=== PATIENT | male | born 1935 | race Caucasian/White ===

== ENCOUNTER 2016-10-17 08:19 | Inpatient (IN) | payer MEDICARE ==
[~2016-10-17] VITALS: Ht 177.8 cm; Wt 83.5 kg
[2016-10-17] MEDS ORDERED: LISI10TA4 PO (08:28)
[2016-10-17] MEDS ORDERED: ASPI81TA85 PO (08:28)
[2016-10-17] MEDS ORDERED: ACETAMINOPHEN TAB 650MG DOSE (2X325MG) PO ONE (09:00)
[2016-10-17] MEDS ORDERED: NS 1,000 ML IV ONE (09:00)
[2016-10-17 09:21] LABS: MEAN CORPUSCULAR HGB CONC 34.9 g/dl (32.0-36.5); MEAN CORPUSCULAR VOLUME 94.7 fl (80.0-96.0); PLATELET COUNT, AUTOMATED 127 k/mm3 (150-450); RED CELL DISTRIBUTION WIDTH 12.5 % (11.5-14.5)
[2016-10-17 09:28] LABS: INR 1.31
[2016-10-17] MEDS ORDERED: META48.54 PO (09:44)
[2016-10-17] MEDS ORDERED: TUMS500C PO (09:44)
[2016-10-17] MEDS ORDERED: ONDANSETRON 4MG/2ML VIAL (J2405) IV ONE (09:45)
[2016-10-17 09:46] LABS: ALBUMIN 2.6 GM/DL (3.2-5.2); ALBUMIN/GLOBULIN RATIO 0.6 (1.00-1.93); BILIRUBIN,DIRECT 0.3 MG/DL (0.0-0.2); CALCIUM LEVEL 7.9 MG/DL (8.8-10.2); CREATININE FOR GFR 1.67 MG/DL (0.70-1.30); GLOMERULAR FILTRATION RATE 42.1 (>35); POTASSIUM SERUM 3.9 MEQ/L (3.5-5.1); TOTAL PROTEIN 6.9 GM/DL (6.4-8.2)
[2016-10-17 12:44] LABS: REASON FOR REVIEW PLATELET MORPHOLOGY
[2016-10-17] MEDS ORDERED: GI COCKTAIL 50ML BTL(HYOSCYAMINE/MAALOX/LIDOCAINE VISCOUS)(1:3:1) PO ONE (12:45)
[2016-10-17] MEDS ORDERED: ACETAMINOPHEN TAB 650MG DOSE (2X325MG) PO PRN (13:15)
[2016-10-17] MEDS ORDERED: ONDANSETRON 4MG/2ML VIAL (J2405) IV PRN (13:15)
--- NOTE | 2016-10-17 13:40 | HPEPDOC ---
General Date of Admission Oct 17, 2016 at 13:15 Chief Complaint The patient is a 81-year-old male Presented to the ER with complaints of right leg rash, swelling and mild pain. History of Present Illness Patient is 81 year old male with a PMHx of HTN, Arthritis, Hx of SAH 2 /2 Aneurism (s/p coiling 2005), Hx of DVT in R leg (>3 years ago) and Hx of Colon resection (2/2 suspected malignancy) who presented to the ER with complaints of right leg rash. Patient notes that 7 days ago he had pain in his leg and thought nothing of it. Then 3 days ago he began to notice a rash on his thigh and a day after he had developed swelling. He notes that the rash started on the inner side of his right thigh then progressed to his lower limb. He noted that there was mild pain, warmth, and redness. He denied any trauma or bites to the leg. Has not used any new medications. Has not had this happen before in the past. Denied any fever or chills at home. He noted that for the last 2 days he was dizzy and nauseous and had vomited for the last 2 days. Denies abdominal pain, constipation, diarrhea or urinary symptoms. Denies any shortness of breath, cough, chest pain or palpitations. Home Medications Scheduled Aspirin (Aspir-81) 81 Mg Tab, 81 MG PO DAILY, (Reported) Lisinopril (Lisinopril) 10 Mg Tab, 10 MG PO DAILY, (Reported) Psyllium (Metamucil) 48.57 % Pow, 1 PKT PO BID, (Reported) Scheduled PRN Calcium Carbonate (Tums) 500 Mg Chw, 500 MG PO for INDIGESTION, (Reported) Allergies Coded Allergies: No Known Allergies (Unverified , 10/17/16) Past Medical History Medical History HTN, Arthritis, Hx of SAH 2/2 Aneurism (s/p coiling 2005), Hx of DVT in R leg (>3 years ago) and Hx of Colon resection (2/2 suspected malignancy) Surgical History Hx of Colon resection (2/2 suspected malignancy) Family History - Non-contributory Social History - Denies the use of alcohol, tobacco or illicit drugs - Denies recent travel or sick contacts - Lives with - Occupation: [employer] Review of Symptoms Other systems Constitutional: Denies weight loss, change in appetite, or recent trauma Eyes: No visual changes or eye pain Ears, Nose, Throat: Denies nose bleeds, or difficulty swallowing Cardiovascular: Denies chest pain, sweating, or orthopnea Respiratory: Denies cough, wheezing, or shortness of breath GI: Positive nausea and vomiting, No abdominal pain, diarrhea or constipation : Denies pain with urination or frequency Musculoskeletal: Positive right leg swelling, redness, warmth and mild pain Neuro / Psych: Denies muscle weakness or sensory loss Skin: No skin rashes noted All other review of systems negative; otherwise stated in history of present illness Screening: - Colonoscopy done 1-2 years ago reported normal Vital Signs - Vitals: BP 118/59, HR 63, RR 18, Sat 96%RA, Temp 99.7F - General: Lying in bed, No acute distress, Speaking in full sentences, AAOx3 - HEENT: NC, AT, PERRLA, EOMI - CVS: RRR, +S1S2, - Murmurs / rubs / gallops - Lungs: Fair air entry bilaterally, Clear to auscultation, No wheezing / rales / rhonchi - Abdomen: Soft, Non-distended, Non-tender, + Bowel sounds x 4 - Extremities: + PPx4, Right leg with 1+ pitting edema to thigh, red / petechial rash extending from foot to medial thigh, +warmth, possible bug bite at posterior ankle, left leg with no tenderness - Neuro: No focal motor or sensory deficit - Skin: No visible rashes Laboratory Data Labs 24H Laboratory Tests 2 10/17/16 09:08: Neutrophils 96H, Lymphocytes (Manual) 1L, Monocytes (Manual) 1, Atypical Lymphocytes 2, Platelet Estimate DECREASED, Red Blood Cell Morphology NORMAL, Prothrombin Time 16.4H, Prothromb Time International Ratio 1.31, Activated Partial Thromboplast Time 36.5, Fibrinogen 651H, Anion Gap 8, Glomerular Filtration Rate 42.1, Lactic Acid Level 1.9, Calcium Level 7.9L, Aspartate Amino Transf (AST/SGOT) 5L, Alanine Aminotransferase (ALT/SGPT) 18, Alkaline Phosphatase 59, Total Bilirubin 1.0, Direct Bilirubin 0.3H, C-Reactive Protein, Quantitative 15.40H, Total Protein 6.9, Albumin 2.6L, Albumin/Globulin Ratio 0.60L 10/17/16 11:33: Urine Appearance CLOUDYH, Urine Color GHISLAINE, Urine pH 5.0, Urine Specific [place] 1.024, Urine Protein 1+H, Urine Glucose (UA) NEGATIVE, Urine Ketones NEGATIVE, Urine Urobilinogen 0.2, Urine Bilirubin NEGATIVE, Urine Leukocyte Esterase NEGATIVE, Urine Blood 2+H, Urine Nitrite NEGATIVE, Urine WBC (Auto) 2, Urine RBC (Auto) 0, Urine Hyaline Casts (Auto) 0, Urine Bacteria (Auto) NEGATIVE , Urine Squamous Epithelial Cells 1, Urine Mucus (Auto) LARGE, Urine Sperm (Auto ) 10/17/16 12:36: Differential Slide Review Report, Differential Pathologist's Review PLATELET MORPHOLOGY, Peripheral Blood Smear Path Consult PERIPHERAL SMEAR CBC/BMP Laboratory Tests 10/17/16 09:08 Red Blood Count 3.95 L, Mean Corpuscular Volume 94.7, Mean Corpuscular Hemoglobin 33.0, Mean Corpuscular Hemoglobin Concent 34.9, Red Cell Distribution Width 12.5 Microbiology Microbiology 10/17/16 Blood Culture, Received Pending 10/17/16 Blood Culture, Received Pending 10/17/16 Influenza Virus Type A Antigen - Final, Complete 10/17/16 Influenza Virus Type B Antigen - Final, Complete 10/17/16 Group A Streptococcus Screen (CORIE), Received Pending 10/17/16 Urine Culture, Received Pending Plan / VTE VTE Prophylaxis Ordered?: Yes Plan Plan Right leg pain / redness / warmth likely 2/2 cellulitis possibly 2/2 bug bit - Presented with pain that progressed to redness and swelling - Physical reveals red / warm / tender leg, with small area behind ankle with possible insect bite - WBC elevated, CRP elevated - US in ER completed without any evidence of DVT - Will check MRI leg, Will check blood cultures - Will start Ceftaroline (re: MRSA coverage) Elevated Creatinine likely at baseline 2/2 CKD3 - Will c/w gentle IV fluid hydration for now Thrombocytopenia - Etiology unknown - Labs reveal an elevation in INR and low albumin suggesting liver etiology - Will check hepatitis panel, HIV, Peripheral smear - Will get US of abdomen (Liver and Spleen) - Will monitor for now - Will hold ASA HTN - c/w Lisinopril with holding parameters Arthritis Hx of SAH 2/2 Aneurism (s/p coiling 2005) Hx of DVT in R leg (>3 years ago) Hx of Colon resection (2/2 suspected malignancy) GERD - will start protonix DVT prophylaxis - Will start SCDs FLOR JUNE MD Oct 17, 2016 13:40
[2016-10-17] MEDS ORDERED: NS 1,000 ML IV SCH ×2 (14:00→15:00)
[2016-10-17] MEDS ORDERED: CEFTAROLINE FOSAMIL 600 MG in D5W MINI-BAG PLUS 50 ML IV SCH (14:00)
--- NOTE | 2016-10-17 15:08 | REP ---
Chest one-view HISTORY: Sepsis Comparison: None The lungs are clear. The heart is normal in size. The pulmonary vasculature is normal in appearance. Impression: No acute disease. Signed by Palomo Mtz MD 10/17/2016 10:05 A
--- NOTE | 2016-10-17 15:10 | REP ---
UNILATERAL RIGHT LOWER EXTREMITY DUPLEX VEINS: HISTORY: Swelling. There are no filling defects in the deep venous system. The deep venous system is patent. IMPRESSION: There is no deep venous thrombosis. Signed by Palomo Mtz MD 10/17/2016 02:16 P
[2016-10-17 15:25] VITALS: BP 105/60
[2016-10-17] MEDS: CEFTAROLINE FOSAMIL 400 MG in D5W MINI-BAG PLUS 50 ML IV SCH (16:32)
[2016-10-17] MEDS: PANTOPRAZOLE 40MG TAB (PROTONIX) PO SCH (16:32)
[2016-10-17] MEDS: LISINOPRIL 10 MG TAB PO SCH (16:33)
[2016-10-17] MEDS ORDERED: ACETAMINOPHEN 325 MG TAB PO ONE (16:50)
[2016-10-17 18:00] VITALS: BP 110/62
[2016-10-17 21:03] VITALS: BP 120/78
[2016-10-17 22:00] VITALS: BP 120/78
[2016-10-18] MEDS: CEFTAROLINE FOSAMIL 400 MG in D5W MINI-BAG PLUS 50 ML IV SCH ×2 (01:42→14:19)
[2016-10-18 02:00] VITALS: BP 110/60
[2016-10-18 06:00] VITALS: BP 105/61
[2016-10-18 06:34] LABS: BASO % 0.1 % (0.0-1.0); EOS % 0.4 % (0.0-3.0); LARGE UNSTAINED CELL # 0.2 K/mm3 (0.0-0.4); LARGE UNSTAINED CELL % 1.8 % (0.0-4.0); LYMPH # 0.6 K/mm3 (1.5-4.5); LYMPH % 5.9 % (24.0-44.0); MEAN CORPUSCULAR HEMOGLOBIN 34.2 pg (27.0-33.0); MEAN CORPUSCULAR HGB CONC 35.5 g/dl (32.0-36.5); MEAN CORPUSCULAR VOLUME 96.2 fl (80.0-96.0); MONO # 0.4 K/mm3 (0.0-0.8); MONO % 3.8 % (0.0-5.0); NEUTROPHILS # 9.1 K/mm3 (1.8-7.7); NEUTROPHILS % 88.1 % (36.0-66.0); RED CELL DISTRIBUTION WIDTH 12.5 % (11.5-14.5); WHITE BLOOD COUNT 10.4 K/mm3 (4.0-10.0)
[2016-10-18 06:38] LABS: ALBUMIN 2.1 GM/DL (3.2-5.2); ALBUMIN/GLOBULIN RATIO 0.55 (1.00-1.93); BILIRUBIN,TOTAL 0.8 MG/DL (0.2-1.0); CALCIUM LEVEL 7.5 MG/DL (8.8-10.2); CREATININE FOR GFR 1.37 MG/DL (0.70-1.30); TOTAL PROTEIN 5.9 GM/DL (6.4-8.2)
[2016-10-18 07:16] LABS: PLATELET COUNT, AUTOMATED 99 k/mm3 (150-450)
[2016-10-18 07:34] LABS: CONTROL LINE HPYORI INT CTR LINE PRESENT
[2016-10-18] MEDS: LISINOPRIL 10 MG TAB PO SCH (08:48)
[2016-10-18] MEDS: PANTOPRAZOLE 40MG TAB (PROTONIX) PO SCH (08:52)
[2016-10-18 10:00] VITALS: BP 108/65
[2016-10-18] MEDS ORDERED: METAMUCIL (PSYLLIUM) PACKET PO PRN (10:15)
--- NOTE | 2016-10-18 10:24 | IPNPDOC ---
Subjective Date Seen The patient was seen on 10/18/16. Subjective Chief Complaint/HPI The patient is a 81-year-old male admitted with a reason for visit of Fever,Rt Leg Pain. General: Denies: Chills, Night Sweats Constitutional: Denies: Chills, Fever Eyes: Denies: Pain ENT: Denies: Head Aches, Ear Pain Skin: Reports: Rash, Other (RLE Cellulitis) Pulmonary: Denies: Dyspnea, Cough Cardiovascular: Denies: Chest Pain, Palpitations Gastrointestinal: Denies: Nausea, Vomiting Genitourinary: Denies: Dysuria, Frequency Hematologic: Denies: Bruising, Bleeding Excessively Musculoskeletal: Denies: Neck Pain, Back Pain Objective Physical Examination General Exam: Positive: Alert, Cooperative, No Acute Distress ENT Exam: Positive: Atraumatic, Mucous membr. moist/pink Neck Exam: Negative: JVD Chest Exam: Positive: Clear to auscultation, Normal air movement Heart Exam: Positive: Rate Normal, Normal S1, Normal S2 Abdomen Exam: Positive: Soft, Negative: Tenderness Extremity Exam: Positive: Other (Right lower extremity notable for erythema, petechial rash extending from foot distally to medial thigh proximally. Nontender to palpation, no warmth on palpation. No open lesions or drainage/ noted. 1+ pitting edema lower aspect of the extremity. Left lower extremity with no acute findings.) Psych Exam: Positive: Oriented x 3 Assessment /Plan Plan/VTE VTE Prophylaxis Ordered?: Yes Plan Right lower extremity cellulitis Ultrasound of lower extremity with no evidence of DVT White blood cell count trending downward this morning Continue to trend ESR, CRP markers MRI of the left foot pending Blood cultures unrevealing thus far Continue Ceftaroline The patient states that he is feeling much better today, and the pain/ tenderness of his right lower extremity has resolved We will continue to monitor his progress Acute kidney injury superimposed on Chronic kidney disease stage IIIB Serum creatinine appears to be at baseline following IV fluid hydration Thrombocytopenia of unclear etiology Hepatitis panel, Peripheral smear pending No active bleeding, Will monitor for now Hold aspirin HTN Continue Lisinopril History of Arthritis Hx of SAH 2/2 Aneurism (s/p coiling 2005) Hx of DVT in R leg (>3 years ago) Hx of Colon resection (2/2 suspected malignancy) DVT prophylaxis Continue SCDs Disposition-anticipate discharge in 24-48 hours pending clinical improvement. VS, I&O, 24H, [facility] Vital Signs/I&O Vital Signs Date Time Temp Pulse Resp B/P (MAP) Pulse Ox O2 Delivery O2 Flow Rate FiO2 10/18/16 08:48 105/61 10/18/16 06:00 100.2 63 18 95 Room Air I&O- Last 24 Hours up to 6 AM 10/18/16 06:00 Intake Total 3240 ml Output Total 700 ml Balance 2540 ml Laboratory Data 24H LABS Laboratory Tests 2 10/17/16 11:33: Urine Appearance CLOUDYH, Urine Color GHISLAINE, Urine pH 5.0, Urine Specific [place] 1.024, Urine Protein 1+H, Urine Glucose (UA) NEGATIVE, Urine Ketones NEGATIVE, Urine Urobilinogen 0.2, Urine Bilirubin NEGATIVE, Urine Leukocyte Esterase NEGATIVE, Urine Blood 2+H, Urine Nitrite NEGATIVE, Urine WBC (Auto) 2, Urine RBC (Auto) 0, Urine Hyaline Casts (Auto) 0, Urine Bacteria (Auto) NEGATIVE , Urine Squamous Epithelial Cells 1, Urine Mucus (Auto) LARGE, Urine Sperm (Auto ) 10/17/16 12:36: Differential Slide Review Report, Differential Pathologist's Review PLATELET MORPHOLOGY, Peripheral Blood Smear Path Consult PERIPHERAL SMEAR 10/17/16 15:37: Helicobacter pylori IgG Antibody NEGATIVE 10/18/16 05:50: Erythrocyte Sedimentation Rate 68H, C-Reactive Protein, Quantitative 13.20H 10/18/16 05:54: White Blood Count 10.4H, Red Blood Count 3.59L, Hemoglobin 12.3L, Hematocrit 34.6L, Mean Corpuscular Volume 96.2H, Mean Corpuscular Hemoglobin 34.2H, Mean Corpuscular Hemoglobin Concent 35.5, Red Cell Distribution Width 12.5, Platelet Count 99L, Neutrophils (%) (Auto) 88.1H, Lymphocytes (%) (Auto) 5.9L, Monocytes (%) (Auto) 3.8, Eosinophils (%) (Auto) 0.4, Basophils (%) (Auto) 0.1, Neutrophils # (Auto) 9.1H, Lymphocytes # (Auto) 0.6L, Monocytes # (Auto) 0.4, Eosinophils # (Auto) 0.0, Basophils # (Auto) 0.0, Large Unclassified Cells % 1.8 , Large Unclassified Cells # 0.2, Anion Gap 7L, Glomerular Filtration Rate 53.0 , Blood Urea Nitrogen 23H, Creatinine 1.37H, Sodium Level 137, Potassium Level 4.0, Chloride Level 106, Carbon Dioxide Level 24, Calcium Level 7.5L, Aspartate Amino Transf (AST/SGOT) 8L, Alanine Aminotransferase (ALT/SGPT) 17, Alkaline Phosphatase 54, Total Bilirubin 0.8, Total Protein 5.9L, Albumin 2.1L, Magnesium Level 2.0, Albumin/Globulin Ratio 0.55L CBC/BMP Laboratory Tests 10/18/16 05:54 Red Blood Count 3.59 L, Mean Corpuscular Volume 96.2 H, Mean Corpuscular Hemoglobin 34.2 H, Mean Corpuscular Hemoglobin Concent 35.5, Red Cell Distribution Width 12.5, Neutrophils (%) (Auto) 88.1 H, Lymphocytes (%) (Auto) 5.9 L, Monocytes (%) (Auto) 3.8, Eosinophils (%) (Auto) 0.4, Basophils (%) (Auto ) 0.1, Neutrophils # (Auto) 9.1 H, Lymphocytes # (Auto) 0.6 L, Monocytes # (Auto ) 0.4, Eosinophils # (Auto) 0.0, Basophils # (Auto) 0.0, Calcium Level 7.5 L, Aspartate Amino Transf (AST/SGOT) 8 L, Alanine Aminotransferase (ALT/SGPT) 17, Alkaline Phosphatase 54, Total Bilirubin 0.8, Total Protein 5.9 L, Albumin 2.1 L Microbiology Microbiology 10/17/16 Blood Culture, Received Pending 10/17/16 Blood Culture - Preliminary, Resulted No growth after 24 hours . All specim... 10/17/16 Influenza Virus Type A Antigen - Final, Complete 10/17/16 Influenza Virus Type B Antigen - Final, Complete 10/17/16 Group A Streptococcus Screen (CORIE) - Final, Complete 10/17/16 Urine Culture, Received Pending SONIDO LUNA MD Oct 18, 2016 10:24
[2016-10-18 14:00] VITALS: BP 123/71
[2016-10-18] MEDS ORDERED: diphenhydrAMINE CREAM 30GM TOP PRN (14:30)
[2016-10-18 18:00] VITALS: BP 124/77
[2016-10-18 20:00] VITALS: BP 121/76
[2016-10-19 02:00] VITALS: BP 150/79
[2016-10-19] MEDS: CEFTAROLINE FOSAMIL 400 MG in D5W MINI-BAG PLUS 50 ML IV SCH ×2 (02:13→14:18)
--- NOTE | 2016-10-19 05:46 | ECGEPIP ---
Stationary ECG Study [facility] - ED Test Date: 2016-10-17 Pat Name: DOMINIC TAMEZ Department: Room: - Gender: M Print Production Coordinator: XAVIER : 1935 Requested By: CRYSTAL Altamirano Order Number: [id number] Reading MD: Jesus Candelaria Measurements Intervals Duff Rate: 78 P: 56 NC: 192 QRS: -19 QRSD: 95 T: 30 QT: 355 QTc: 405 Interpretive Statements SINUS RHYTHM NO PRIORS Electronically Signed On 10-19-2016 5:45:40 EDT by Jesus Candelaria
[2016-10-19 06:00] VITALS: BP_DIAS 130
[2016-10-19 07:51] LABS: EOS # 0.2 K/mm3 (0.0-0.50); EOS % 3.2 % (0.0-3.0); LARGE UNSTAINED CELL # 0.2 K/mm3 (0.0-0.4); LARGE UNSTAINED CELL % 2.7 % (0.0-4.0); LYMPH # 0.9 K/mm3 (1.5-4.5); LYMPH % 10.2 % (24.0-44.0); MEAN CORPUSCULAR HEMOGLOBIN 31.8 pg (27.0-33.0); MEAN CORPUSCULAR HGB CONC 33.6 g/dl (32.0-36.5); MEAN CORPUSCULAR VOLUME 94.6 fl (80.0-96.0); MONO # 0.5 K/mm3 (0.0-0.8); MONO % 6.1 % (0.0-5.0); NEUTROPHILS # 5.7 K/mm3 (1.8-7.7); NEUTROPHILS % 77.8 % (36.0-66.0); PLATELET COUNT, AUTOMATED 118 k/mm3 (150-450); RED CELL DISTRIBUTION WIDTH 12.4 % (11.5-14.5); WHITE BLOOD COUNT 7.3 K/mm3 (4.0-10.0)
[2016-10-19] MEDS: PANTOPRAZOLE 40MG TAB (PROTONIX) PO SCH (08:13)
[2016-10-19] MEDS: LISINOPRIL 10 MG TAB PO SCH (08:13)
[2016-10-19 08:23] LABS: ALBUMIN 2.1 GM/DL (3.2-5.2); ALBUMIN/GLOBULIN RATIO 0.53 (1.00-1.93); BILIRUBIN,TOTAL 0.5 MG/DL (0.2-1.0); CALCIUM LEVEL 7.5 MG/DL (8.8-10.2); CREATININE FOR GFR 1.3 MG/DL (0.70-1.30); GLOMERULAR FILTRATION RATE 56.3 (>35); MAGNESIUM LEVEL 2.2 MG/DL (1.8-2.4); POTASSIUM SERUM 3.8 MEQ/L (3.5-5.1); TOTAL PROTEIN 6.1 GM/DL (6.4-8.2)
[2016-10-19] MEDS ORDERED: INFLUENZA VIRUS VACCINE HIGH DOSE 0.5 ML SYRINGE (90662) IM ONE (09:00)
[2016-10-19] MEDS ORDERED: PREVNAR 13 VACCINE SYRINGE (CPT CODE:90670) IM ONE (09:00)
[2016-10-19 09:24] LABS: ERYTHROCYTE SEDIMENTATION RATE 81 mm/hr (0-20)
[2016-10-19 10:00] VITALS: BP 143/80
[2016-10-19] MEDS ORDERED: diphenhydrAMINE 25 MG CAP PO PRN (10:15)
--- NOTE | 2016-10-19 10:55 | REP ---
MRI RIGHT FOOT: TECHNIQUE: Multiple multiplanar MR sequences pre- and post-IV contrast gadolinium, with the intravenous administration of 8 mL of gadolinium. There is mild subchondral marrow edema in the distal end of the tibia. There is mild subchondral marrow edema in the navicular bone distally and in the adjacent medial cuneiform distally as well as the base of the first metatarsal, apparently due to associated arthritic changes. There is also a mild subchondral marrow edema in the lateral cuneiform and in the cuboid and base of 5th metatarsal secondary to degenerative changes. There is no occult fracture. There is diffuse moderate, ill-defined edema in the subcutaneous soft tissues, primarily posteriorly extending into the dorsum of the foot. There is no soft tissue enhancement or evidence of cellulitis by MRI. No fluid collection is seen in the soft tissues. The flexor and extensor tendons of the foot appear intact. Plantar fascia demonstrates no abnormal signal. Plantar tendon is intact as are the Achilles tendon. There is no evidence of osteomyelitis. No ganglion cyst is seen. IMPRESSION: Diffuse moderate soft tissue edema in the hind foot extending to the dorsum of the foot without evidence of cellulitis or fluid collection. Scattered arthritic changes in the foot without evidence of osteomyelitis or occult fracture. Signed by Jadon Echevarria MD 10/19/2016 05:41 P
[2016-10-19 14:00] VITALS: BP 140/79
[2016-10-19 18:00] VITALS: BP 116/85
[2016-10-19 22:00] VITALS: BP 111/68
--- NOTE | 2016-10-19 22:26 | IPNPDOC ---
Date Seen The patient was seen on 10/19/16. Progress Note SUBJECTIVE: Mr. Funez is an 81-year-old male with right lower extremity cellulitis. Patient reports continued pruritus of his right lower extremity. Negative DVT. States that he had some difficulty sleeping overnight for which we will give Benadryl by mouth overnight. States that he is ambulatory without incident. OBJECTIVE PHYSICAL EXAMINATION: VITAL SIGNS: Please see below. GENERAL: Elderly male who appears younger than stated age, in no apparent distress HEENT: Atraumatic, normocephalic, PERRL, EOMI, nasal septum appears midline, oral mucosa appears pink and moist CARDIOVASCULAR: Regular rate and rhythm, normal S1 and S2, no appreciable murmur RESPIRATORY: Clear to auscultation bilaterally, no wheeze, rhonchi, crackles ABDOMINAL: Soft, non-tender, non-distended, bowel sounds appreciated EXTREMITIES: - LEFT: peripheral pulses appreciated bilaterally, no edema or erythema appreciated - RIGHT: upper extremity peripheral pulse appreciated, equal, symmetrical; lower extremity erythema noted on lateral and anterior leg and medial thigh, blanchable; grade 1 pressure wounds noted on posterior and medial ankle, non- blanching; +2 pitting edema up to the level of the knee NEUROLOGICAL: CN II-XII grossly intact PSYCHOLOGICAL: Mood and affect appear appropriate LABORATORY DATA: Please see below. MICROBIOLOGY: Please see below. IMAGING: MRI right ankle without and with contrast IMPRESSION: Diffuse moderate soft tissue edema in the hind foot extending to the dorsum of the foot without evidence of cellulitis or fluid collection. Scattered arthritic changes in the foot without evidence of osteomyelitis or occult fracture. DVT prophylaxis ordered?: TEDs and ambulation ASSESSMENT AND PLAN: This is an 81-year-old male with right lower extremity cellulitis. PROBLEMS: 1. Right lower extremity cellulitis: Cellulitis appears to be improving. Continue with intravenous ceftaroline. Afebrile over the past 24 hours. Continue with topical Benadryl for pruritus. Provide as needed oral Benadryl at night for sleep management. ESR 81, CRP 9.06. Continue to monitor daily. WBC 7.3. Continues to improve. Monitor with daily CBC. MRI does not show cellulitis or osteomyelitis, although there is a report of soft tissue edema. 2. Hypertension: BP was 128/70. Continue patient on Lisinopril. 3. Acute renal failure superimposed on chronic kidney disease: BUN and creatinine are 24 and 1.30, respectively. Will continue to monitor with daily BMP. 4. Gastroesophageal reflux disease: Continue with Protonix. DISPOSITION: Patient remains admitted to the medical-surgical unit. Continues to improve. Will monitor over the next 24 hours with possible discharge at that time. VS, I&O, 24H, Fishbone Vital Signs/I&O Vital Signs Date Time Temp Pulse Resp B/P (MAP) Pulse Ox O2 Delivery O2 Flow Rate FiO2 10/19/16 08:13 128/70 10/19/16 06:00 97.9 57 18 98 Room Air I&O- Last 24 Hours up to 6 AM 10/19/16 05:59 Intake Total 2030 ml Output Total 1100 ml Balance 930 ml Laboratory Data 24H LABS Laboratory Tests 2 10/19/16 07:09: White Blood Count 7.3, Red Blood Count 3.73L, Hemoglobin 11.8L, Hematocrit 35.2L , Mean Corpuscular Volume 94.6, Mean Corpuscular Hemoglobin 31.8, Mean Corpuscular Hemoglobin Concent 33.6, Red Cell Distribution Width 12.4, Platelet Count 118L, Neutrophils (%) (Auto) 77.8H, Lymphocytes (%) (Auto) 10.2L, Monocytes (%) (Auto) 6.1H, Eosinophils (%) (Auto) 3.2H, Basophils (%) (Auto) 0.0 , Neutrophils # (Auto) 5.7, Lymphocytes # (Auto) 0.9L, Monocytes # (Auto) 0.5, Eosinophils # (Auto) 0.2, Basophils # (Auto) 0.0, Large Unclassified Cells % 2.7 , Large Unclassified Cells # 0.2, Erythrocyte Sedimentation Rate 81H, Anion Gap 7L, Glomerular Filtration Rate 56.3, Blood Urea Nitrogen 24H, Creatinine 1.30, Sodium Level 138, Potassium Level 3.8, Chloride Level 106, Carbon Dioxide Level 25, Calcium Level 7.5L, Aspartate Amino Transf (AST/SGOT) 37, Alanine Aminotransferase (ALT/SGPT) 74, Alkaline Phosphatase 67, Total Bilirubin 0.5, Total Protein 6.1L, Albumin 2.1L, Magnesium Level 2.2, C-Reactive Protein, Quantitative 9.06H, Albumin/Globulin Ratio 0.53L CBC/BMP Laboratory Tests 10/19/16 07:09 Red Blood Count 3.73 L, Mean Corpuscular Volume 94.6, Mean Corpuscular Hemoglobin 31.8, Mean Corpuscular Hemoglobin Concent 33.6, Red Cell Distribution Width 12.4, Neutrophils (%) (Auto) 77.8 H, Lymphocytes (%) (Auto) 10.2 L, Monocytes (%) (Auto) 6.1 H, Eosinophils (%) (Auto) 3.2 H, Basophils (%) (Auto) 0.0, Neutrophils # (Auto) 5.7, Lymphocytes # (Auto) 0.9 L, Monocytes # ( Auto) 0.5, Eosinophils # (Auto) 0.2, Basophils # (Auto) 0.0, Calcium Level 7.5 L , Aspartate Amino Transf (AST/SGOT) 37, Alanine Aminotransferase (ALT/SGPT) 74, Alkaline Phosphatase 67, Total Bilirubin 0.5, Total Protein 6.1 L, Albumin 2.1 L Microbiology Microbiology 10/17/16 Blood Culture - Preliminary, Resulted No growth after 24 hours . All specim... 10/17/16 Blood Culture - Preliminary, Resulted No Growth after 48 hours. All Specime... 10/17/16 Influenza Virus Type A Antigen - Final, Complete 10/17/16 Influenza Virus Type B Antigen - Final, Complete 10/17/16 Group A Streptococcus Screen (CORIE) - Final, Complete 10/17/16 Urine Culture - Final, Complete MATTHIAS DAVIS October 19, 2016 10:33
[2016-10-20 02:00] VITALS: BP 101/59
[2016-10-20] MEDS: CEFTAROLINE FOSAMIL 400 MG in D5W MINI-BAG PLUS 50 ML IV SCH (02:15)
[2016-10-20 06:00] VITALS: BP 116/66
[2016-10-20 07:04] LABS: BASO % 0.3 % (0.0-1.0); EOS # 0.5 K/mm3 (0.0-0.50); EOS % 4.6 % (0.0-3.0); LARGE UNSTAINED CELL # 0.2 K/mm3 (0.0-0.4); LARGE UNSTAINED CELL % 1.9 % (0.0-4.0); LYMPH # 1.2 K/mm3 (1.5-4.5); LYMPH % 11.7 % (24.0-44.0); MEAN CORPUSCULAR HEMOGLOBIN 32.6 pg (27.0-33.0); MEAN CORPUSCULAR HGB CONC 33.7 g/dl (32.0-36.5); MEAN CORPUSCULAR VOLUME 96.7 fl (80.0-96.0); MONO # 0.6 K/mm3 (0.0-0.8); MONO % 5.6 % (0.0-5.0); NEUTROPHILS # 7.6 K/mm3 (1.8-7.7); NEUTROPHILS % 75.9 % (36.0-66.0); PLATELET COUNT, AUTOMATED 170 k/mm3 (150-450); RED CELL DISTRIBUTION WIDTH 12.2 % (11.5-14.5)
[2016-10-20 07:25] LABS: ALBUMIN 2.4 GM/DL (3.2-5.2); ALBUMIN/GLOBULIN RATIO 0.51 (1.00-1.93); BILIRUBIN,TOTAL 0.6 MG/DL (0.2-1.0); CALCIUM LEVEL 8.2 MG/DL (8.8-10.2); CREATININE FOR GFR 1.5 MG/DL (0.70-1.30); GLOMERULAR FILTRATION RATE 47.7 (>35); MAGNESIUM LEVEL 2.3 MG/DL (1.8-2.4); TOTAL PROTEIN 7.1 GM/DL (6.4-8.2)
[2016-10-20 07:34] LABS: ERYTHROCYTE SEDIMENTATION RATE 78 mm/hr (0-20)
[2016-10-20 08:37] VITALS: BP 113/71
[2016-10-20] MEDS: PANTOPRAZOLE 40MG TAB (PROTONIX) PO SCH (08:37)
[2016-10-20] MEDS: LISINOPRIL 10 MG TAB PO SCH (08:37)
[2016-10-20 10:00] VITALS: BP 120/72
[2016-10-20] MEDS ORDERED: CLEO300C2 PO (10:12)
--- NOTE | 2016-10-20 11:16 | DS.PDOC ---
Discharge Summary General Date of Admission Oct 17, 2016 at 13:15 Primary Care Physician: Raquel Freedman Attending Physician: SONIDO LUNA MD Discharge Summary PROCEDURES PERFORMED DURING STAY: None. ADMITTING DIAGNOSES: 1. Right lower extremity cellulitis. 2. Fever. 3. Chronic kidney disease stage III with elevated creatinine. 4. Thrombocytopenia. 5. Hypertension. 6. Arthritis. 7. Gastroesophageal reflux disease. DISCHARGE DIAGNOSES: 1. Fever. 2. Right leg pain. 3. Petechiae. COMPLICATIONS/CHIEF COMPLAINT: Fever,Rt Leg Pain. HISTORY OF PRESENT ILLNESS: Mr. 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 Patient notes that 7 days ago he had pain in his leg and thought nothing of it. Then 3 days ago he began to notice a rash on his thigh and a day after he had developed swelling. He notes that the rash started on the inner side of his right thigh then progressed to his lower limb. He noted that there was mild pain, warmth, and redness. He denied any trauma or bites to the leg. Has not used any new medications. Has not had this happen before in the past. Denied any fever or chills at home. He noted that for the last 2 days he was dizzy and nauseous and had vomited for the last 2 days. Denies abdominal pain, constipation, diarrhea or urinary symptoms. Denies any shortness of breath, cough, chest pain or palpitations. HOSPITAL COURSE: Patient was admitted to the hospital under the hospitalist service. Ultrasound of lower extremity was completed which showed no evidence of deep venous thrombosis. MRI of the ankle and foot was performed which showed soft tissue edema without cellulitis or osteomyelitis. Blood cultures thus far have remained negative. Inflammatory markers improved during hospitalization. Patient was started on sertraline for MRSA coverage. Patient received intravenous fluid rehydration. Hepatitis panel and HIV panel were performed and were negative. Aspirin was held for the time being. Hypertension was controlled with lisinopril. Patient was started on Protonix for gastroesophageal reflux disease. Deep venous thrombosis prophylaxis was provided with thromboembolic deterrent devices and sequential compression. Patient did have a slight increase in his liver enzymes. Could be a consequence of patient's prior colon resection or fatty liver. Recommend further evaluation with primary care provider. Patient was transitioned to oral clindamycin for 7 more days. Patient informed that if diarrhea develops to contact primary care provider and discontinue antibiotic. Patient continued to improve during hospitalization and was stable for discharge. DISCHARGE MEDICATIONS: Please see below. ALLERGIES: Please see below. PHYSICAL EXAMINATION ON DISCHARGE: VITAL SIGNS: Please see below. GENERAL: Pleasant elderly male sitting bedside playing cards evaluation this morning, appears younger than stated age, in no apparent distress HEENT: Atraumatic, normocephalic, PERRL, EOMI, oral mucosa appears pink and moist, nasal septum appears midline, wears spectacles NECK: Soft, supple, trachea midline, no lymphadenopathy appreciated CARDIOVASCULAR EXAMINATION: Regular rate and rhythm, normal S1 and S2, no murmur , rub, click appreciated RESPIRATORY EXAMINATION: Clear to auscultation bilaterally, adequate inspiratory and expiratory airway excursion, no wheeze, rhonchi, crackles ABDOMINAL EXAMINATION: Soft, nontender, nondistended, bowel sounds appreciated EXTREMITIES: Moving all 4 extremities appropriately, radial pulses appreciated bilaterally, equal, symmetrical, +2/4; lower extremity peripheral pulses appreciated bilaterally, equal, symmetrical, +2/4 SKIN: Skin appears without jaundice, rash, lesion; left lower extremities without edema; right lower extremity shows petechiae an erythematous rash noted along the anterior portion of the leg and the medial thigh, blanchable, +1 pitting edema appreciated NEUROLOGICAL EXAMINATION: Cranial nerves II through XII appear grossly intact PSYCHIATRIC EXAMINATION: Mood and affect appear appropriate LABORATORY DATA: Please see below. IMAGING: Duplex ultrasound of right lower extremity IMPRESSION: There is no deep venous thrombosis. Portal chest x-ray Impression: No acute disease. MRI right foot without followed by with contrast IMPRESSION: Diffuse moderate soft tissue edema in the hind foot extending to the dorsum of the foot without evidence of cellulitis or fluid collection. Scattered arthritic changes in the foot without evidence of osteomyelitis or occult fracture. PROGNOSIS: Stable ACTIVITY: As tolerated DIET: 2 g sodium DISCHARGE PLAN: Follow discharge instructions DISPOSITION: Home. DISCHARGE INSTRUCTIONS: 1. Appointment with Raquel Freedman on 10/30/2016 at 11:15 AM. 2. Take clindamycin 300 mg 4 times a day for 7 days. 3. Return to the emergency department if symptoms worsen or persist. 4. Follow-up with Raquel David if diarrhea develops. ITEMS TO FOLLOWUP ON ON OUTPATIENT: 1. Elevated liver enzymes. 2. Possible antibiotic side effects. 3. Right lower extremity soft tissue edema. DISCHARGE CONDITION: Stable. TIME SPENT ON DISCHARGE: Greater than 30 minutes. Vital Signs/I&Os Vital Signs Date Time Temp Pulse Resp B/P (MAP) Pulse Ox O2 Delivery O2 Flow Rate FiO2 10/20/16 08:37 113/71 10/20/16 06:00 97.3 57 18 93 Room Air I&O- Last 24 Hours up to 6 AM 10/20/16 05:59 Intake Total 1660 ml Output Total 2250 ml Balance -590 ml Laboratory Data Labs 24H Laboratory Tests 2 10/20/16 06:52: White Blood Count 10.0, Red Blood Count 4.37, Hemoglobin 14.3#, Hematocrit 42.3 , Mean Corpuscular Volume 96.7H, Mean Corpuscular Hemoglobin 32.6, Mean Corpuscular Hemoglobin Concent 33.7, Red Cell Distribution Width 12.2, Platelet Count 170, Neutrophils (%) (Auto) 75.9H, Lymphocytes (%) (Auto) 11.7L, Monocytes (%) (Auto) 5.6H, Eosinophils (%) (Auto) 4.6H, Basophils (%) (Auto) 0.3 , Neutrophils # (Auto) 7.6, Lymphocytes # (Auto) 1.2L, Monocytes # (Auto) 0.6, Eosinophils # (Auto) 0.5, Basophils # (Auto) 0.0, Large Unclassified Cells % 1.9 , Large Unclassified Cells # 0.2, Erythrocyte Sedimentation Rate 78H, Anion Gap 7L, Glomerular Filtration Rate 47.7, Blood Urea Nitrogen 23H, Creatinine 1.50H, Sodium Level 139, Potassium Level 4.0, Chloride Level 106, Carbon Dioxide Level 26, Calcium Level 8.2L, Aspartate Amino Transf (AST/SGOT) 50H, Alanine Aminotransferase (ALT/SGPT) 128H, Alkaline Phosphatase 93, Total Bilirubin 0.6, Total Protein 7.1, Albumin 2.4L, Magnesium Level 2.3, C-Reactive Protein, Quantitative 6.63H, Albumin/Globulin Ratio 0.51L CBC/BMP Laboratory Tests 10/20/16 06:52 Red Blood Count 4.37, Mean Corpuscular Volume 96.7 H, Mean Corpuscular Hemoglobin 32.6, Mean Corpuscular Hemoglobin Concent 33.7, Red Cell Distribution Width 12.2, Neutrophils (%) (Auto) 75.9 H, Lymphocytes (%) (Auto) 11.7 L, Monocytes (%) (Auto) 5.6 H, Eosinophils (%) (Auto) 4.6 H, Basophils (%) (Auto) 0.3, Neutrophils # (Auto) 7.6, Lymphocytes # (Auto) 1.2 L, Monocytes # ( Auto) 0.6, Eosinophils # (Auto) 0.5, Basophils # (Auto) 0.0, Calcium Level 8.2 L , Aspartate Amino Transf (AST/SGOT) 50 H, Alanine Aminotransferase (ALT/SGPT) 128 H, Alkaline Phosphatase 93, Total Bilirubin 0.6, Total Protein 7.1, Albumin 2.4 L Microbiology Microbiology 10/17/16 Blood Culture - Preliminary, Resulted No Growth after 48 hours. All Specime... 10/17/16 Blood Culture - Preliminary, Resulted No Growth after 72 hours. All specime... 10/17/16 Influenza Virus Type A Antigen - Final, Complete 10/17/16 Influenza Virus Type B Antigen - Final, Complete 10/17/16 Group A Streptococcus Screen (CORIE) - Final, Complete 10/17/16 Urine Culture - Final, Complete Discharge Medications Scheduled Aspirin (Aspir-81) 81 Mg Tab, 81 MG PO DAILY, (Reported) Clindamycin Hcl (Cleocin) 300 Mg Cap, 300 MG PO QID Lisinopril (Lisinopril) 10 Mg Tab, 10 MG PO DAILY, (Reported) Psyllium (Metamucil) 48.57 % Pow, 1 PKT PO BID, (Reported) Scheduled PRN Calcium Carbonate (Tums) 500 Mg Chw, 500 MG PO for INDIGESTION, (Reported) Allergies Coded Allergies: No Known Allergies (Unverified , 10/17/16) MATTHIAS DAVIS October 20, 2016 11:15
== END 2016-10-20 11:26 | disposition home or self-care (01) | DRG 603 ==
LOC: M ED 09:03 → M ED INP 13:15 → M MSPAV 15:21
PROVIDERS: ADMIT Internal Medicine; ATTEND Internal Medicine
DX: L03.115 Cellulitis of right lower limb (principal); N18.3 Chronic kidney disease, stage 3 (moderate); I12.9 Hypertensive chronic kidney disease with stage 1 through stage 4 chronic kidney disease, or unspecified chronic kidney disease; K21.9 Gastro-esophageal reflux disease without esophagitis; Z86.718 Personal history of other venous thrombosis and embolism; Z79.82 Long term (current) use of aspirin; Z79.899 Other long term (current) drug therapy; D69.6 Thrombocytopenia, unspecified

== ENCOUNTER → 2016-11-09 | Outpatient (REF) | payer MEDICARE ==
[~2016-11-09] MED LIST: ASPI81TA85 PO; CLEO300C2 PO; LISI10TA4 PO; META48.54 PO; TUMS500C PO
== END ==
LOC: M LAB REF 16:33
PROVIDERS: ATTEND Nurse Practitioner Family
DX: B37.0 Candidal stomatitis (principal)

== ENCOUNTER → 2016-12-04 | Outpatient (REF) | payer MEDICARE | LOC: M LAB REF 12:23 | PROVIDERS: ATTEND Nurse Practitioner Family | DX: L03.115 Cellulitis of right lower limb (principal) ==

== ENCOUNTER → 2019-02-08 | Outpatient (REF) | payer MEDICARE | LOC: M LAB REF 13:30 | PROVIDERS: ATTEND Surgery | DX: C44.612 Basal cell carcinoma of skin of right upper limb, including shoulder (principal) ==

== ENCOUNTER → 2023-03-23 | Outpatient (REF) | payer MEDICARE ==
[~2023-03-23] MED LIST changes: -ASPI81TA85 PO; +ASPI81TA86 PO; +LISI10TA22 PO; -LISI10TA4 PO
== END ==
LOC: M LAB REF 11:52
PROVIDERS: ATTEND Physician Assistant Medical
DX: A69.20 Lyme disease, unspecified (principal)